=== PATIENT | male | born 1980 | race Two or more races ===

== ENCOUNTER 2020-12-03 12:16 | Emergency (ER) | payer OTHER ==
[2020-12-03] MEDS ORDERED: Lidocaine 1% 30 ML SDV INJECT ONE (12:24)
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
== END 2020-12-03 14:10 | disposition home or self-care (01) ==
LOC: VM.ED 12:16
DX: S61.412A Laceration without foreign body of left hand, initial encounter (principal); S61.411A Laceration without foreign body of right hand, initial encounter; S40.212A Abrasion of left shoulder, initial encounter; V58.5XXA Driver of pick-up truck or van injured in noncollision transport accident in traffic accident, initial encounter
CPT/HCPCS: 12002; 73030-LT; 99283; 99284-25